=== PATIENT | male | born 1975 | race African-American/Black ===

== ENCOUNTER 2018-05-14 16:59 | Emergency (ER) | payer SELFPAY ==
[~2018-05-14 16:59] MED LIST: CALCIUM CHLORIDE 1,000 MG/10 ML DISP.SYRIN; DOPamine 400MG/250ML PREMIX 400 MG/250 ML BAG IV; EPINEPHrine SYRINGE 1 MG/10 ML SYRINGE; EPINEPHrine VIAL 30 MG/30 ML VIAL; SODIUM BICARB ADULT 8.4% 50 MEQ/50 ML DISP.SYRIN.
[2018-05-14 17:10] LABS: AGAP ISTAT 25 mmol/L (6-14); BUN ISTAT 13 mg/dL (8-26); CHLORIDE ISTAT 103 mmol/L (98-110); CREATININE ISTAT 2.3 mg/dL (0.5-1.4); GLUCOSE ISTAT 237 mg/dL (70-99); HEMATOCRIT ISTAT 45 % (37-52); HEMOGLOBIN ISTAT 15.3 g/dL (14-18); ION CA ISTAT 1.05 mmol/L (1.13-1.32); POTASSIUM ISTAT 3.5 mmol/L (3.5-5.0); SODIUM ISTAT 142 mmol/L (135-145); TOT CO2 ISTAT 18 mmol/L (23-32)
[2018-05-14 17:18] LABS: TROPONIN BY ISTAT 0.04 ng/ml (<0.08)
[2018-05-15 07:12] LABS: POC GLUCOSE 225 mg/dL (70-99)
== END 2018-05-14 21:34 | disposition expired ==
LOC: ER 16:59
DX: I46.9 Cardiac arrest, cause unspecified (principal)
CPT/HCPCS: 36556; 80047; 82962; 84484; 92950; 99285; J0171; J1265; J3490